=== PATIENT | male | born 1935 | race Caucasian/White ===

== ENCOUNTER 2017-11-19 05:58 | Day surgery (SDC) | payer OTHER ==
[2017-11-03 16:24] VITALS: BMI 22.0
--- NOTE | 2017-11-11 12:20 | PAT Medication Instructions ---
Service Date Nov 11, 2017. Current Home Medication List Acetaminophen (Tylenol), 325 MG PO Q4 PRN for Pain Alfuzosin Hcl (Uroxatral), 10 MG PO QAM Aspirin (Aspirin 81), 1 TAB PO QAM Cinacalcet Hydrochloride (Sensipar), 60 MG PO QPM Clopidogrel Bisulfate (Plavix), 75 MG PO QAM Ergocalciferol (Drisdol), 1 CAP PO 1XMONTH Hydralazine Hcl (Apresoline), 25 MG PO TID Isosorbide Mononitrate Ext Rel (Imdur Ext Rel), 1 TAB PO QAM Levothyroxine Sodium (Synthroid), 100 MCG PO QAM Nitroglycerin (Nitrostat), 0.4 MG UT PRN Phenytoin Sodium (Dilantin), 300 MG PO QPM Phenytoin Sodium (Dilantin), 50 CAP PO QPM Rosuvastatin Calcium (Crestor), 20 MG PO QPM Sevelamer Carbonate (Renvela), 800 MG PO TID Ticagrelor (Brilinta), 1 TAB PO BID Medication Instructions For Your Scheduled Surgery - Check with Dr. Martinez for instructions: Ticagrelor (Brilinta), 1 TAB PO BID Isosorbide Mononitrate Ext Rel (Imdur Ext Rel), 1 TAB PO QAM Clopidogrel Bisulfate (Plavix), 75 MG PO QAM Aspirin (Aspirin 81), 1 TAB PO QAM - Hold the following medications the morning of surgery: Alfuzosin Hcl (Uroxatral), 10 MG PO QAM Ergocalciferol (Drisdol), 1 CAP PO 1XMONTH Sevelamer Carbonate (Renvela), 800 MG PO TID - Take the following medications the morning of surgery with a sip of water: Nitroglycerin (Nitrostat), 0.4 MG UT PRN (if needed) Hydralazine Hcl (Apresoline), 25 MG PO TID Levothyroxine Sodium (Synthroid), 100 MCG PO QAM Acetaminophen (Tylenol), 325 MG PO Q4 PRN for Pain (okay to take up to 4 hours prior to surgery if needed) - Take the following medications as scheduled the night before surgery: Sevelamer Carbonate (Renvela), 800 MG PO TID Phenytoin Sodium (Dilantin), 300 MG PO QPM Phenytoin Sodium (Dilantin), 50 CAP PO QPM Rosuvastatin Calcium (Crestor), 20 MG PO QPM Nitroglycerin (Nitrostat), 0.4 MG UT PRN (if needed) Hydralazine Hcl (Apresoline), 25 MG PO TID Cinacalcet Hydrochloride (Sensipar), 60 MG PO QPM Acetaminophen (Tylenol), 325 MG PO Q4 PRN for Pain (if needed) If you have any questions please call us at [phone] or [phone] or [phone]
[2017-11-11 14:26] LABS: CALCIUM 7.7 mg/dl (8.5-10.1); CREATININE 5.65 mg/dl (0.60-1.40); POTASSIUM 4.9 mmol/L (3.5-5.1)
[2017-11-19] VITALS (7 sets, daily range): BP systolic 106–150; BP diastolic 49–96; PULSE 55–67; TEMP 36.4–37; O2SAT 91–97; Ht 162.6 cm; Wt 60.8 kg
[~2017-11-19] VITALS: Ht 162.6 cm; Wt 60.8 kg
[~2017-11-19 05:58] MED LIST: ACET-1311 PO; ALFU10TA2 PO; ASPI-435 PO; CINA0.42 PO; CLOP1TAB5 PO; DLN100 PO; ERGO50002 PO; HYDR-4717 PO; ISOS30TA35 PO; LEVO100T PO; NTRGSL/4 UT; PHN/100 PO; ROSU20TA PO; SEVE800T7 PO; TICA1TAB PO
[2017-11-19] MEDS ORDERED: LACTATED RINGER'S 1000ML IV SCH (06:00)
[2017-11-19] MEDS ORDERED: SODIUM CHLORIDE 0.9% 1000ML 1,000 ML IV SCH (06:00)
[2017-11-19] MEDS ORDERED: CEFAZOLIN 1000MG IV PUSH 7.5 ML IV SCH (06:00)
[2017-11-19 07:02] LABS: CALCIUM 9.5 mg/dl (8.5-10.1); CREATININE 3.93 mg/dl (0.60-1.40); POTASSIUM 4.1 mmol/L (3.5-5.1)
[2017-11-19] MEDS ORDERED: BUPIVACAINE 0.5 % 5 MG/1 ML MPF 30ML VIAL ONE (07:22)
[2017-11-19] MEDS ORDERED: LIDOCAINE HCL 1% 20 ML VIAL ONE (07:22)
[2017-11-19] MEDS ORDERED: BACITRACIN 50000 UNIT VIAL ONE (07:22)
[2017-11-19] MEDS ORDERED: EpHEDrine SULFATE INJ 50 MG/ML AMP IV PRN (07:30)
[2017-11-19] MEDS ORDERED: FENTANYL CITRATE INJ 50 MCG/1 ML 2 ML VIAL IV PRN (07:30)
[2017-11-19] MEDS ORDERED: ATROPINE SULFATE 0.1 MG/ML 5ML SYR IV PRN (07:30)
[2017-11-19] MEDS ORDERED: ONDANSETRON INJ 2 MG/ML 2 ML VIAL IV PRN (07:30)
[2017-11-19] MEDS ORDERED: MIDAZOLAM HCL 1 MG/ML 2ML VIAL ONE (07:51)
[2017-11-19] MEDS ORDERED: FENTANYL CITRATE INJ 50 MCG/1 ML 2 ML VIAL ONE (07:51)
[2017-11-19] MEDS ORDERED: LIDOCAINE HCL 2% 2 ML VIAL (20MG/ML) ONE (07:51)
[2017-11-19] MEDS ORDERED: PROPOFOL IV EMULSION 10 MG/ML 20 ML VIAL IV ONE (07:51)
[2017-11-19] MEDS ORDERED: PROPOFOL IV EMULSION 10 MG/ML 100 ML VIAL IV ONE (07:56)
--- NOTE | 2017-11-19 08:08 | History and Physical ---
History & Physical Date Nov 19, 2017. History of Present Illness The patient is a 82 year old male with complaints of sob, fatigue. Past Medical/Surgical History lbbb cad s/p [place] 2005 with PCI to Cx, with recent PCI to LAD and Cx and PTCA to diagonal in [facility] 06/2017 HTN SB no on BB Statin intolerance ESRD on HD Chornic systolic HF, NYHA class III ICM No ARB due to hyperkalemia Hypothyroidism BPH Additional History Hepatic Disease: No Endocrine Disorder: Yes Kidney Disease: Yes Hypertension: Yes Heart Disease: Yes Bleeding Tendencies: No Infectious Diseases: No Allergies Coded Allergies: No Known Allergies (Unverified , 11/19/17) Home Medications Scheduled Alfuzosin Hcl (Uroxatral), 10 MG PO QAM Aspirin (Aspirin 81), 1 TAB PO QAM Cinacalcet Hydrochloride (Sensipar), 60 MG PO QPM Clopidogrel Bisulfate (Plavix), 75 MG PO QAM Ergocalciferol (Drisdol), 1 CAP PO 1XMONTH Hydralazine Hcl (Apresoline), 25 MG PO TID Isosorbide Mononitrate Ext Rel (Imdur Ext Rel), 1 TAB PO QAM Levothyroxine Sodium (Synthroid), 100 MCG PO QAM Nitroglycerin (Nitrostat), 0.4 MG UT PRN Phenytoin Sodium (Dilantin), 300 MG PO QPM Phenytoin Sodium (Dilantin), 50 CAP PO QPM Rosuvastatin Calcium (Crestor), 20 MG PO QPM Sevelamer Carbonate (Renvela), 800 MG PO TID Ticagrelor (Brilinta), 1 TAB PO BID Scheduled PRN Acetaminophen (Tylenol), 325 MG PO Q4 PRN for Pain Physical Examination Skin: warm/dry, no rash Eyes: normal inspection, sclerae normal Head: normocephalic, atraumatic Neck: supple Respiratory/Chest: lungs clear, normal breath sounds Cardiovascular: regular rate, rhythm, no edema, + systolic murmur Abdomen / GI: non tender Extremities: + pertinent finding (av fistula on left) Neurologic/Psych: alert, oriented x 3 Diagnosis ICM lbbb Chornic systolic HF, NYHA class III SB no on BB cad s/p [place] 2005 with PCI to Cx, with recent PCI to LAD and Cx and PTCA to diagonal in [facility] 06/2017 HTN Statin intolerance ESRD on HD No ARB due to hyperkalemia Hypothyroidism BPH ASA Classification: ASA Class III Plan of Treatment for biv ICD with anesthesia. Consents obtained
--- NOTE | 2017-11-19 11:44 | [facility] Post Operative Brief Note ---
Immediate Operative Summary Operative Date Nov 19, 2017. Pre-Operative Diagnosis icm, lbbb, chronic systolic HF, NYHA class III, sinus bradycardia Post-Operative Diagnosis same Procedure(s) Performed biventricular rate responsive ICD with peripheral and coronary sinus venogram under fluroscopic guidance Surgeon pauline khan Weight Loss Consultant Surgeon(s) none Estimated Blood Loss 25cc Findings See Below see official report Fluids (cc crystalloids) 220 Specimens none Drains None Anesthesia Type MAC Complication(s) none Disposition Accompanied Pt To Recover: yes Disposition: PCU
[2017-11-19] MEDS ORDERED: ACETAMINOPHEN 325 MG TAB PO PRN (11:45)
[2017-11-19] MEDS ORDERED: NITROGLYCERIN 0.4 MG SL PER TAB CHARGE UT PRN (11:45)
--- NOTE | 2017-11-19 11:47 | Discharge Instructions ---
Discharge Instructions Date of Service Nov 19, 2017. Admission Reason for Admission: Cardiomyopathy W/Anesthesia Discharge Discharge Diagnosis / Problem: ICM EF 29%, LBBB, Chronic systolic HF-NYHA Class III, Sinus bradycardia Discharge Goals Goal(s): Improve function Activity Recommendations Activity Limitations: as noted below Lifting Limitations: no more than 10 pounds (do not lift more than 10 pounds with the right arm for 2 weeks-do not lift the right elbow over the right shoulder for 1 month) Shower/Bathe: tomorrow Driving or Machine Use: resume 1 day after discharge . Instructions / Follow-Up Instructions / Follow-Up ACTIVITY RECOMMENDATIONS: * Do not raise affected arm over head for 4 weeks. SPECIAL CARE INSTRUCTIONS: * If bleeding occurs, apply direct pressure to area for 5 minutes. * Call your doctor if you have severe pain, fever, drainage or bleeding at site. * Keep dry for 24 hours. * Keep any scheduled doctor's appointment. * Implant Card - hand held device with website information given. SKIN IRRITATION: * You may experience some redness and/or swelling in the area where radiation was administered. If any skin irritation occurs, please contact your family physician. FOLLOW UP VISIT: Keep any scheduled doctor appointments. Current Hospital Diet Patient's current hospital diet: AHA Diet (Heart Healthy), Low Sodium Diet (2gm Na), Renal Diet Discharge Diet Recommended Diet: AHA Diet (Heart Healthy), Low Sodium Diet (2gm Na), Renal Diet Procedures Procedures Performed: biventricular rate responsive ICD with peripheral and coronary sinus venogram under fluroscopic guidance Pending Studies Studies pending at discharge: no Medical Emergencies . Who to Call and When: Medical Emergencies: If at any time you feel your situation is an emergency, please call 911 immediately. . Non-Emergent Contact Non-Emergency issues call your: [employer] . . "Provider Documentation" section prepared by Kristen Martinez. .
[2017-11-19] MEDS ORDERED: IV FLUIDS COMPLETED PRN (12:00)
--- NOTE | 2017-11-19 12:26 | Discharge Summary ---
Discharge Summary Date of Service Nov 19, 2017. Discharge Summary Admission Date: 11/19/2017 Discharge Date: Nov 20, 2017 Discharge Disposition: Home Principal Diagnosis: ICM s/p 25% 06/2017, 29% 09/2017 Secondary Diagnoses/Problems: LBBB Chronic systolic heart failure, NYHA Class III Sinus bradycardia CAD s/p [place] 2006 PCI Cx, PCI to LAD and Cx and PTCA diag 06/2017 ESRD on HD HTN HLD Hypothyroidism BPH Hyperkalemia Procedures: BiV ICD with peripheral and coronary sinus venograms under fluoroscopic guidance Medication Reconciliation New Medications: Metoprolol Succinate (Metoprolol Succinate ER) 25 Mg Tabcr 25 MG PO QAM for 30 Days Continued Medications: Acetaminophen (Tylenol) 325 Mg Tab 325 MG PO Q4 PRN for Pain, TAB Alfuzosin Hcl (Uroxatral) 10 Mg Tab 10 MG PO QAM, TAB Aspirin (Aspirin 81) 81 Mg Tab 1 TAB PO QAM Cinacalcet Hydrochloride (Sensipar) 30 Mg Tab 60 MG PO QPM, TAB Clopidogrel Bisulfate (Plavix) 75 Mg Tab 75 MG PO QAM, TAB Ergocalciferol (Drisdol) 50,000 Unit Cap 1 CAP PO 1XMONTH Hydralazine Hcl (Apresoline) 50 Mg Tab 25 MG PO TID, TAB Isosorbide Mononitrate Ext Rel (Imdur Ext Rel) 30 Mg Tabcr 1 TAB PO QAM, TAB Levothyroxine Sodium (Synthroid) 100 Mcg Tab 100 MCG PO QAM, TAB Nitroglycerin (Nitrostat) 0.4 Mg Tab 0.4 MG UT PRN, BTL Phenytoin Sodium (Dilantin) 100 Mg Cap 300 MG PO QPM, CAP Phenytoin Sodium (Dilantin) 100 Mg Cap 50 CAP PO QPM, CAP Rosuvastatin Calcium (Crestor) 20 Mg Tab 20 MG PO QPM, TAB Sevelamer Carbonate (Renvela) 800 Mg Tab 800 MG PO TID TAKES WITH MEALS Ticagrelor (Brilinta) 90 Mg Tab 1 TAB PO BID Admission Information Physical Exam (per Admitting): aaox3, NAD, Supple, No JVD Bradycardic, +Systolic murmur CTA b/l No w/r/r soft NT/ND No edema b/l LE No focal deficits skin intact Hospital Course Pt admitted for elective BiV ICD. Underwent procedures; patient did have a very small linear right PTX-was asymptomatic no intervention necessary. Pt was started on Toprol. Monitored overnight and discharged home Total time spent on discharge = 35minutes This includes examination of the patient, discharge planning, medication reconciliation, and communication with other providers. Discharge Instructions ACTIVITY RECOMMENDATIONS: * Do not raise affected arm over head for 4 weeks. SPECIAL CARE INSTRUCTIONS: * If bleeding occurs, apply direct pressure to area for 5 minutes. * Call your doctor if you have severe pain, fever, drainage or bleeding at site. * Keep dry for 24 hours. * Keep any scheduled doctor's appointment. * Implant Card - hand held device with website information given. SKIN IRRITATION: * You may experience some redness and/or swelling in the area where radiation was administered. If any skin irritation occurs, please contact your family physician. FOLLOW UP VISIT: Keep any scheduled doctor appointments.
--- NOTE | 2017-11-19 12:51 | Anesthesiology Progress Note ---
Anesthesia Post Op Note Date & Time Nov 19, 2017 at 12:51 Vital Signs Pain Intensity: 0 Vital Signs Past 12 Hours Date Time Temp Pulse Resp B/P (MAP) Pulse Ox O2 Delivery O2 Flow Rate FiO2 11/19/17 11:49 64 18 126/72 (90) 93 Room Air 11/19/17 11:39 65 18 130/65 (86) 92 Room Air 11/19/17 06:20 36.5 55 20 133/62 (85) 97 Room Air Notes Mental Status: alert / awake / arousable, participated in evaluation Pt Amnestic to Procedure: Yes Nausea / Vomiting: adequately controlled Pain: adequately controlled Airway Patency, RR, SpO2: stable & adequate BP & HR: stable & adequate Hydration State: stable & adequate Anesthetic Complications: no major complications apparent
[2017-11-19] MEDS: CLOPIDOGREL BISULFATE 75 MG TAB PO SCH (14:13)
[2017-11-19] MEDS: ASPIRIN 81 MG ECTAB PO SCH (14:13)
[2017-11-19] MEDS: METOPROLOL SUCC 25MG EXT REL TAB PO SCH (14:13)
--- NOTE | 2017-11-19 16:10 | DIAGNOSTIC IMAGING REPORT ---
CHEST ONE VIEW PORTABLE HISTORY: 82 years-old Male post implant status post placement of a right subclavian pacer/ICD COMPARISON: Chest radiograph 11/19/2017 TECHNIQUE: Portable AP view of the chest FINDINGS: Cardiac silhouette is enlarged, unchanged. Atherosclerosis of the aorta. Left subclavian stent graft is noted. Additional stent graft noted within the left lower arm, partially imaged Status post placement of a right subclavian pacer/AICD with leads overlying the regions of the right atrium and bilateral ventricles. Linear subsegmental opacity of the right lung base compatible with atelectasis. There is a linear line noted at the right lung apex suspicious for small postprocedural pneumothorax, 8 mm from the chest wall. No overt pulmonary edema or large pleural effusion. The bones appear grossly intact. IMPRESSION: 1. Status post placement of a right subclavian pacer/AICD with leads overlying the region of the right atrium and bilateral ventricles. Linear line at the right lung apex suggest small procedural pneumothorax. Attention at follow-up recommended. 2. Linear subsegmental right basilar atelectasis. 3. Cardiomegaly without overt pulmonary edema. The above report was generated using voice recognition software. It may contain grammatical, syntax or spelling errors. Electronically signed by: Nick Cuadra M.D. 11/19/2017 4:09 PM Dictated Date/Time: 11/19/2017 4:04 PM
[2017-11-19] MEDS: SEVELAMER HYDROCH 800 MG TAB PO SCH (16:58)
[2017-11-19] MEDS: TICAGRELOR 90 MG TAB PO SCH (20:33)
[2017-11-19] MEDS ORDERED: PHENYTOIN SODIUM ER 100 MG CAP PO SCH ×2 (21:00)
[2017-11-19] MEDS ORDERED: ROSUVASTATIN CALCIUM 20 MG TAB PO SCH (21:00)
--- NOTE | 2017-11-19 21:22 | OPERATIVE REPORT ---
DATE OF OPERATION: 11/19/2017 PREOPERATIVE DIAGNOSES: Ischemic cardiomyopathy, sinus bradycardia, left bundle-branch block, chronic systolic heart failure [place] Heart Association class 3. POSTOPERATIVE DIAGNOSES: Same. PROCEDURE: Biventricular rate responsive implantable cardiac defibrillator implantation along with a peripheral and coronary sinus venogram, all under fluoroscopic guidance. SURGEON: Kristen Martinez DO. MEDICAL INFORMATION SPECIALIST: None. ANESTHESIA: Monitored anesthetic care administered via anesthesiology. A total of 2 mg of Versed, 100 mcg of fentanyl, 600 mg of propofol. ANTIBIOTICS: Ancef 1 gram. CONTRAST: 40 mL COMPLICATIONS: small linear right sided PTX CONDITION: Stable. URINE OUTPUT: Not applicable. SPECIMENS: None. FINDINGS: See below. DRAINS: None. INDICATIONS: This is an 82-year-old gentleman with past medical history for ischemic cardiomyopathy, ejection fraction of 25% back in 06/2017 and at that time he got further PCI interventions, so a repeat echocardiogram revealed his EF to still be depressed at 29% in 09/2017. He has a history of left bundle-branch block; sinus bradycardia, not on beta blockers; coronary artery disease; history of an [place] in 2005 with PCI to the circumflex at that time, followed then by PCI to the LAD and circumflex as well as PTCA to the diagonal in 06/2017; aortic stenosis; hypertension; hyperlipidemia; statin intolerance; end-stage renal disease, on hemodialysis; chronic systolic heart failure [place] Heart Association class 3; ischemic cardiomyopathy; hypothyroidism; carotid artery stenosis; hyperkalemia; and BPH. He was recommended biventricular implantable cardiac defibrillator. CONSENT: Consent was obtained prior to the patient going into electrophysiology lab. The patient was informed of risks, benefits and alternatives to the procedure. Risks include but not limited to sudden cardiac ; cardiac arrhythmias; cerebrovascular accident; myocardial infarction; injury to the blood vessels, chamber of the heart, lung; bleeding; and infection. The patient understood these risks and agreed to the procedure as planned. Informed consent was obtained. DESCRIPTION OF PROCEDURE: The patient was brought into electrophysiology lab in a fasting state. He was connected to continuous waste hand. A timeout was performed to ensure the patient's identity and procedure correctly. The patient received prophylactic antibiotics prior to incision. He was prepped and draped over the right infraclavicular space in normal surgical standard fashion. [place] precautions were maintained throughout the procedure. Monitored anesthetic care was given throughout the procedure for the patient's comfort level by anesthesia. 20 mL of 1% lidocaine-bupivacaine mixture were given in the right deltopectoral groove. Incision was made in the right deltopectoral groove. Initially, no cephalic vein could be identified. Peripheral venogram using 10 mL of IV contrast diluted in 10 mL of saline was performed and subclavian access was obtained; however, I was having further difficulties and we performed another venogram, at which time I found the cephalic vein lit up, so I then did blunt dissection down to identify the cephalic vein and I isolated this using 0 silk ties, nicked it with an 11 blade, and a guidewire was inserted without any resistance. An 8-Mont[place] sheath was inserted over the guidewire through the cephalic vein. Dilator was removed and a second guidewire was inserted through the 8-Mont[place]in sheath to allow for retained venous access. The sheath was ultimately removed and a 9.5-Montenegrin sheath was inserted over the 1 guidewire through the cephalic vein without any problems. The guidewire and dilator were removed. The right ventricular pacing lead was advanced into right ventricle and positioned into right ventricular apex under fluoroscopic guidance. There were adequate pacing and sensing thresholds and no diaphragmatic stimulation with high output pacing. The 9.5-Montenegrin sheath was peeled away and the lead was fixated to pectoralis muscle using 0 silk suture. A long 7-[place]in sheath was inserted over the retained guidewire through the cephalic vein. The guidewire and dilator removed. The right atrial lead was advanced into right atrium, ultimately positioned into the right atrial appendage under fluoroscopic guidance using a preformed white J curve. There were adequate pacing and sensing thresholds and no diaphragmatic stimulation with high output pacing. The 7-[place]grin sheath was peeled away and lead was fixated to pectoralis muscle using 0 silk suture. A 9.5-Montenegrin sheath was then inserted over a separate stick through the subclavian vein. Guidewire and dilator were removed. Then, right-sided MPX multipurpose catheter was advanced into the right atrium over a Glidewire. The dilator and the Glidewire were removed. The coronary sinus was cannulated using a Decapolar Biosense coronary sinus diagnostic catheter and the MPX catheter was then threaded over the EP diagnostic catheter into the coronary sinus. A venogram of the coronary sinus was performed which identified a nice posterolateral branch. The branch was cannulated with a Whisper wire, it nicely went down the branch and then the lead was tracked over the Whisper wire out into the branch. There was adequate pacing and impedance, and there was no diaphragmatic stimulation with high output pacing. The MPX coronary sinus sheath was then split under fluoroscopic guidance, followed then by the 9.5-Montenegrin sheath, and the left ventricular lead was sewn down to the pectoralis muscle using 0 silk suture. Using blunt dissection over the pectoralis muscle, a defibrillator pocket was created. The pocket was flushed with copious amounts of bacitracin saline wash and inspected for hemostasis. The defibrillator was then attached to the leads, making sure that the pins were in appropriate position, passed set screws and set screws were all tightened. The defibrillator was then placed in the pocket, making sure that the leads were lying flat beneath the device. The incision was then closed in 3-layer fashion using 2-0 Vicryl interrupted suture, followed by 3-0 Vicryl interrupted suture, followed by 4-0 Monocryl running stitch, and Dermabond was applied. EQUIPMENT: 1. Generator is a [employer]Klip[employer] quad BIOMETRICIAN-D SureScan [id number], serial #[id number]. 2. Right atrial lead, Medtronic 5076-52 cm, serial #[id number]. 3. Right ventricular lead, Medtronic 6935M-62 cm, serial #[id number]. 4. Left ventricular lead, Medtronic 4598-88 cm, serial #[id number]. INTRAOPERATIVE TESTIN. Right atrial lead: P-wave 6.4 millivolts, impedance 690 ohms, threshold 0.4 volts at 0.7 milliamps. 2. Right ventricular lead: R waves 12 millivolts, impedance 714 ohms, threshold 0.6 volts at 0.8 milliamps. 3. Left ventricular lead programmed LV1-LV2 bipolar, impedance 761, threshold 0.7 volts at 0.6 milliamps. FINAL MEASUREMENTS THROUGH THE DEVICE: 1. Right atrial lead: P-waves 6.3 millivolts, impedance 551 ohms, threshold 0.5 volts at 0.4 milliseconds. 2. Right ventricular lead: R-waves 12.8 millivolts, impedance 532 ohms, threshold 0.75 volts at 0.4 milliseconds. 3. The RV coil 72 ohms. 4. Left ventricular lead programmed LV1-LV2 bipolar, impedance 722 ohms, threshold 0.75 volts at 0.4 milliseconds. FINAL PARAMETERS: DDDR 60/130. Right atrial and right ventricular amplitude 3.5 volts, pulse width 0.4 milliseconds, sensitivity 0.3 milliseconds. The left ventricular amplitude 4 volts, pulse width 0.4 milliseconds. VF zone 188 beats per minute for 30 out of 40 detection intervals, VT zone 167 beats per minute for 16 detection intervals and a VT monitor zone at 146 beats per minute for 32 detection intervals. IMPRESSION: Successful implantation of a biventricular implantable cardiac defibrillator rate responsive with peripheral and coronary sinus venograms under fluoroscopic guidance secondary to ischemic cardiomyopathy, left bundle-branch block, sinus bradycardia and chronic systolic heart failure [place] Heart Association class 3. PLAN: Monitor the patient overnight, 12-lead ECG, chest x-ray now as I am concerned that maybe I did cause a small pneumothorax and a chest x-ray tomorrow. He is not allowed to lift the right elbow over the right shoulder for 1 month. He cannot lift more than 10 pounds with the right arm for 2 weeks. He can shower in 2 days. He can continue his home medications and we will also start him on Toprol 25 mg daily. Incentive spirometer due to the small asymptomatic PTX and repeat CXR in the morning. He should follow up in our [place] office device clinic for wound check in 1 week's time. I attest to the content of the Intraoperative Record and any orders documented therein. Any exceptions are noted below. HOWARDD
[2017-11-20 04:00] VITALS: BP 129/70; PULSE 66; TEMP 36.9; O2SAT 94
[2017-11-20] MEDS ORDERED: LEVOTHYROXINE 100 MCG TAB PO SCH (06:00)
[2017-11-20 07:09] VITALS: BP 126/63; PULSE 62; TEMP 37; O2SAT 92
--- NOTE | 2017-11-20 07:23 | DIAGNOSTIC IMAGING REPORT ---
CHEST 2 VIEWS ROUTINE HISTORY: EXACT TIME ORDERED Evaluate for pneumothorax and lead placement COMPARISON: Chest 11/19/2017. FINDINGS: There is again noted a right-sided pacemaker/defibrillator. The leads remain intact. Small right pneumothorax is not significant changed. This demonstrates a maximum pleural gap of 1 cm. Right basilar linear densities persist. The heart remains enlarged. No evidence for pulmonary edema. No midline shift. There is a vascular stent within the left axilla. IMPRESSION: No change in the small right pneumothorax and right basilar subsegmental atelectasis. Electronically signed by: Souleymane Zuniga M.D. 11/20/2017 7:22 AM Dictated Date/Time: 11/20/2017 7:20 AM
[2017-11-20] MEDS: METOPROLOL SUCC 25MG EXT REL TAB PO SCH (07:43)
[2017-11-20] MEDS: ASPIRIN 81 MG ECTAB PO SCH (07:43)
[2017-11-20] MEDS: SEVELAMER HYDROCH 800 MG TAB PO SCH ×2 (07:43→11:44)
[2017-11-20] MEDS: TICAGRELOR 90 MG TAB PO SCH (07:45)
[2017-11-20] MEDS: CLOPIDOGREL BISULFATE 75 MG TAB PO SCH (07:53)
[2017-11-20] MEDS ORDERED: ALFUZosin TAB 10 MG TAB PO SCH (09:00)
[2017-11-20] MEDS ORDERED: CLOPIDOGREL BISULFATE 75 MG TAB PO SCH (09:00)
[2017-11-20] MEDS ORDERED: ASPIRIN 81 MG ECTAB PO SCH (09:00)
[2017-11-20] MEDS ORDERED: ISOSORBIDE MONONITRATE 30 MG TABCR PO SCH (09:00)
[2017-11-20] MEDS ORDERED: TPRSR25 PO (11:01)
--- NOTE | 2017-11-20 11:11 | Cardiology Follow-Up ---
Subjective Subjective Date of Service: Nov 20, 2017. Pt evaluation today including: conversation w/ patient, physical exam, chart review, lab review Pain: minimal at the incision site Review of Systems Constitutional: No weakness, No fatigue Respiratory: No cough, No shortness of breath, No dyspnea at rest Cardiac: No chest pain, No edema, No palpitations Abdomen: No pain, No nausea, No vomiting, No diarrhea, No constipation Male : + problem reported (on dialysis) Endo: No fatigue Objective Vital Signs Last Vital Signs Documentation Date Time Temp Pulse Resp B/P (MAP) Pulse Ox O2 Delivery O2 Flow Rate FiO2 11/20/17 08:00 Room Air 11/20/17 07:09 37.0 62 18 126/63 (84) 92 11/19/17 12:30 2 Physical Exam: General Appearance: WD/WN, no apparent distress Eyes: bilateral eyes PERRL, bilateral eyes EOMI Neck: supple, no JVD Respiratory/Chest: lungs clear, normal breath sounds Cardiovascular: regular rate, rhythm, no JVD, no murmur Abdomen: soft Neurologic/Psychiatric: alert, oriented x 3 Skin: warm/dry (right pectoral incision intact; no hematoma; mild ecchymosis) Assessment and Plan Impression: 1. ICM EF 29% s/p BiV ICD 11/19/2017 2. Post procedure small linear PTX on the right-asymptomatic no intervention needed 3. Sinus bradycardia 4. LBBB 5. Chronic systolic HF-NYHA class III 6. CAD h/o PCI after MD in 2005 to Cx; recent PCI to LAD and CX with PTCA to Diag in 06/2017 7. HTN 8. Statin intolerance 9. ESRD on HD 10. LEON 11. Hypothyroidism 12. BPH Plan: -Ok for discharge home today -Continue with incentive spirometer at home -Repeat CXR next week -Start toprol-script sent to his pharmacy -Continue other home medications -Pt not to lift the right elbow over the right shoulder for 1 month or lift more than 10 pounds with the right arm in 2 weeks -Can shower tomorrow -Dialysis tomorrow -Device and wound check next week in [place] Discharge planning: home Medications: Medications Administered Medications (Trade) Dose Ordered Sig/Lynette Route Start Time Stop Time Status Last Admin Dose Admin Sodium Chloride 1,000 ml @ 15 mls/hr Q24H IV 11/19/17 06:00 11/20/17 05:59 DC 11/19/17 06:33 15 MLS/HR Acetaminophen (Tylenol Tab) 650 mg Q4H PRN PO 11/19/17 11:45 12/19/17 11:44 11/19/17 19:47 650 MG Alfuzosin HCl (Uroxatral Tab) 10 mg QAM PO 11/20/17 09:00 12/20/17 08:59 11/20/17 07:44 10 MG Hydralazine HCl (Apresoline Tab) 25 mg TID PO 11/19/17 14:00 12/19/17 13:59 11/20/17 07:45 25 MG Isosorbide Mononitrate (Imdur Ext Rel Tab) 30 mg QAM PO 11/20/17 09:00 12/20/17 08:59 11/20/17 07:44 30 MG Levothyroxine Sodium (Synthroid Tab) 100 mcg DAILYBB PO 11/20/17 06:00 12/20/17 05:59 11/20/17 05:36 100 MCG Phenytoin Sodium (Dilantin Er Cap) 50 mg QPM PO 11/19/17 21:00 12/19/17 20:59 11/19/17 20:34 50 MG Phenytoin Sodium (Dilantin Er Cap) 300 mg QPM PO 11/19/17 21:00 12/19/17 20:59 11/19/17 20:34 300 MG Rosuvastatin Calcium (Crestor Tab) 20 mg QPM PO 11/19/17 21:00 12/19/17 20:59 11/19/17 20:33 20 MG Ticagrelor (Brilinta Tab) 90 mg BID PO 11/19/17 21:00 12/19/17 20:59 11/20/17 07:45 90 MG Sevelamer HCl (Renagel Tab) 800 mg TIDM PO 11/19/17 16:45 12/19/17 16:44 11/20/17 07:43 800 MG Aspirin (Ecotrin Tab) 81 mg QAM PO 11/19/17 12:00 12/20/17 08:59 11/20/17 07:43 81 MG Clopidogrel Bisulfate (plAVix TAB) 75 mg QAM PO 11/19/17 12:00 12/20/17 08:59 11/20/17 07:53 75 MG Metoprolol Succinate (Toprol Xl Tab) 25 mg QAM PO 11/19/17 13:40 12/19/17 13:39 11/20/17 07:43 25 MG Lab Results: Telemetry: AP-BiV Paced ECG: AP-BiV paced CXR: Leads in position small linear right PTX-unchanged from yesterday in size BiV ICD Interrogation: Normal and stable lead testings since implant 95% BiV pacing overnight some PVCs
[2017-11-20 11:19] VITALS: BP 106/54; PULSE 61; TEMP 37.1; O2SAT 92
[2017-11-20 11:37] VITALS: BP 106/54; PULSE 61; TEMP 37.1; O2SAT 92
== END 2017-11-20 13:55 | disposition home or self-care (01) ==
LOC: C.ACU 05:58 → C.2E 11:39 → ENRESERV 12:37
PROVIDERS: ADMIT Internal Medicine; ATTEND Internal Medicine
DX: I25.5 Ischemic cardiomyopathy (principal); R00.1 Bradycardia, unspecified; I13.2 Hypertensive heart and chronic kidney disease with heart failure and with stage 5 chronic kidney disease, or end stage renal disease; I50.22 Chronic systolic (congestive) heart failure; N18.6 End stage renal disease; I44.7 Left bundle-branch block, unspecified; I25.10 Atherosclerotic heart disease of native coronary artery without angina pectoris; N40.0 Benign prostatic hyperplasia without lower urinary tract symptoms; I35.0 Nonrheumatic aortic (valve) stenosis; E03.9 Hypothyroidism, unspecified; I25.2 Old myocardial infarction; Z99.2 Dependence on renal dialysis; Z98.61 Coronary angioplasty status; Z79.82 Long term (current) use of aspirin